=== PATIENT | female | born 1980 | race Caucasian/White ===

== ENCOUNTER 2025-05-02 09:25 | Day surgery (SDC) | payer MEDICAID ==
[2025-05-01 11:01] LABS: MEAN PLATELET VOLUME 8.8 FL (7.4-10.4); PRE OP HEMATOCRIT 38.3 % (35.0-45.0); PRE OP HEMOGLOBIN 13.0 g/dL (12.0-16.0); PRE OP PLATELET COUNT 285 X10'3 (140-440); PRE OP WHITE BLOOD COUNT 4.8 10'3 (4.8-10.8); RED CELL DISTRIBUTION WIDTH 14.2 % (11.5-14.5)
[2025-05-01 11:28] LABS: CREATININE 0.53 MG/DL (0.40-0.90); PRE OP ALT 29 U/L (30-65); PRE OP ANION GAP 5 (8-16); PRE OP AST 24 U/L (10-37); PRE OP BILIRUB, TOTAL 0.3 MG/DL (0.0-1.0); PRE OP GLUCOSE 102 MG/DL (70-104); PRE OP POTASSIUM 4.0 MMOL/L (3.4-5.1); PRE OP SODIUM 143 MMOL/L (135-145); TOTAL CARBON DIOXIDE 29.7 MMOL/L (24-32); eGFR > 90 ML/MIN
[2025-05-02] VITALS (8 sets, daily range): BP systolic 128–161; BP diastolic 77–103; PULSE 76–81; RESP 11–16; TEMP 99.1; O2SAT 96–99
[~2025-05-02] VITALS: Ht 162.6 cm; Wt 75.1 kg
[~2025-05-02 09:25] MED LIST: IRON; LISI10TA27 PO; MULT-1085 PO; VIT D; ZINC
[2025-05-02] MEDS: ceFAZolin 2gm/dext,iso 50mL 50 ML IV ONE (10:36)
[2025-05-02] MEDS: ringers solution, lacted 1,000 ML IV SCH (10:36)
[2025-05-02] MEDS ORDERED: labetalol 20mg/4ml (5mg/ml) syringe IV PRN (11:15)
[2025-05-02] MEDS ORDERED: hydrALAZINE 20mg/ml inj. IV PRN (11:15)
[2025-05-02] MEDS ORDERED: ondansetron/PF 4mg/2ml inj IV PRN (11:15)
[2025-05-02] MEDS ORDERED: HYDROmorphone/PF 0.2 MG/ML SYRINGE IV PRN ×2 (11:15)
[2025-05-02] MEDS ORDERED: morphine 4 MG/ML inj SYRINge IV PRN (11:15)
[2025-05-02] MEDS ORDERED: ringers solution, lacted 1,000 ML IV SCH (11:15)
[2025-05-02] MEDS ORDERED: methylene blue (5mg/ml) 50mg/10ml ampul IV ONE ×2 (12:13→12:34)
[2025-05-02] MEDS ORDERED: BUPIVAcaine 2.5mg/ml inj 50ml vial (contains preservative) ONE (12:13)
[2025-05-02] MEDS ORDERED: LIDOcaine 1% 30ml preserv. free vial ONE (12:13)
[2025-05-02] MEDS ORDERED: LIDOcaine 1% (10mg/ml)w/preservative inj. 20ml MDV ONE (12:34)
[2025-05-02] MEDS ORDERED: BUPIVAcaine/PF 2.5mg/ml (0.25%) 10ml vial ONE (12:34)
[2025-05-02] MEDS ORDERED: fentaNYL/PF 50MCG/1 ML 2ML syringe ONE (13:03)
[2025-05-02] MEDS ORDERED: midazolam 1 mg/ML 2ml injection ONE (13:03)
[2025-05-02] MEDS ORDERED: ondansetron/PF 4mg/2ml inj ONE (13:10)
[2025-05-02] MEDS ORDERED: propofol inj 20 ML IV ONE (13:10)
[2025-05-02] MEDS ORDERED: LIDOcaine 1%/PF 5ML 10 MG/ML VIAL ONE (13:10)
[2025-05-02] MEDS ORDERED: acetaminophen 1,000mg/100ml IV 100 ML IV ONE (13:11)
[2025-05-02] MEDS ORDERED: dexamethasone sod phosphate 4mg/ml inj. ONE (13:21)
[2025-05-02] MEDS: LIDOCAINE 1% w/preservative (10 MG/ML) inj. 10mL VIAL IJ ONE ×2 (13:21→13:39)
[2025-05-02] MEDS: BUPIVAcaine/PF 2.5mg/ml (0.25%) 10ml vial IJ ONE (13:50)
--- NOTE | 2025-05-02 14:13 | OPERATIVE REPORT ---
Operative Report Providers to IVY Barber Date of Procedure: May 02, 2025 Pre-Operative Diagnosis: Right breast lump Post-Operative Diagnosis SAME as PRE-Op Procedure Performed Right breast wireless localized excisional biopsy with ultrasound-guided and reading of specimen radiograph Surgeon: Dr. Toby Barber [employer] Accounting Manager Elva Hines PA-C Anesthesiologist: Santiago Rand Type of Anesthesia: General Findings: Marker x2 identified on specimen radiograph Complications None Prosthetics\Implants used: None Estimated Blood Loss: Less than 1 mL Specimen Removed: Right breast wireless localized excisional biopsy, suture marked short superior long lateral double deep Description of Procedure: Krystal is a 45-year-old female who has a lump in the right breast that was previously biopsied that revealed fibrosis. It has increased over size and is causing her pain. She desires excisional biopsy other than a repeat ultrasound- guided core needle biopsy. I explained to her the risks and benefits alternatives to the surgery. She gave her informed consent. She was seen in the preoperative holding area by myself. She had a pintuition tracker placed by Dr. Herrera prior to surgery. She was seen in the preoperative holding area by myself and the anesthesiologist. She had an IV placed, SCDs to the lower extremity, and antibiotics at the bedside. The antibiotics were administered prior to the cut of surgery. I signed my initials on the right breast. She was taken to the OR and placed on table in supine position. General anesthesia was administered with an LMA. I scanned the right breast with the pintuition probe just at the 9:00 area outside of the areola. I marked the skin. Additionally I used the ultrasound to identify an area of clustered cysts where the marker was identified. I obtained these views in the radial and anti radial positions. The patient was prepped and draped in a sterile fashion a time-out was performed and agreed upon. An incision was made at the Periareolar edge between the seven and 9:00. positions. The incision was made with a 15 blade. I dissected through the deep layer dermal layer with the cutting on the cautery. Once into the subcutaneous tissue and breast tissue I placed a Croewll retractors at the edges and dissected around the designated spot with the probe which was guided me. The specimen was completely excised and oriented with short stitch superior, long suture lateral, double suture deep. The specimen was secured to the x-ray board and placed in the fact that trauma machine. Two markers were identified inside the specimen. The specimen was placed in formalin and sent to pathology for permanent evaluation. The cavity was copiously irrigated and hemostasis was achieved with Bovie electrocautery. The cavity was reapproximated with 3-0 fazal Vicryl suture and the skin was closed with 3-0 Vicryl and a 4-0 Monocryl running subcuticular stitch. 0.25% Marcaine was injected at the site. Dermabond glue was placed in the skin and sterile dressings with a breast binder The patient was taken to recovery in stable condition without complication. Counts repoted as correct: Yes TOBY BARBER DO May 02, 2025 14:13
== END 2025-05-02 15:12 | disposition home or self-care (01) ==
LOC: PAS 09:25
PROVIDERS: ATTEND Surgery
DX: N63.15 Unspecified lump in the right breast, overlapping quadrants (principal); N60.11 Diffuse cystic mastopathy of right breast; F17.210 Nicotine dependence, cigarettes, uncomplicated; D64.9 Anemia, unspecified; I10 Essential (primary) hypertension; R56.9 Unspecified convulsions; Z91.013 Allergy to seafood; Z80.3 Family history of malignant neoplasm of breast
CPT/HCPCS: 19301; 36415; 76098; 80053; 82948; 85025; J0131; J1100; J2250; J2405; J2704; J3010; J3490; J7030; J7120; Z7506; Z7508; Z7512; A4215; A4618; A6253; A6258; A7000; J2003; Q9968